=== PATIENT | female | born 1955 | race Caucasian/White ===

== ENCOUNTER → 2016-07-26 | Outpatient (CLI) | payer MEDICARE ==
[~2016-07-26] MED LIST: ACEBUTOLOL HCL200 MG PO; ALLER-FEX180 MG PO; ASPIRIN EC81 MG PO; FLECTOR TOPICAL1 EA TD; FLEXERIL 10 MG10 MG PO; FLONASE 0.05% N16 GM; HYDROXYZINE HCL25 MG PO; LIDOPATCH1 EACH TP; LOPRESSOR 25 MG25 MG PO; SIMVASTATIN40 MG PO
== END ==
LOC: MAMO 07-11 08:40
DX: R92.2 Inconclusive mammogram (principal); Z90.710 Acquired absence of both cervix and uterus
CPT/HCPCS: G0206

== ENCOUNTER 2016-10-30 12:34 | Inpatient (IN) | payer MEDICARE ==
[~2016-10-30] VITALS: Ht 171.4 cm; Wt 66.5 kg
[~2016-10-30 12:34] MED LIST changes: -ACEBUTOLOL HCL200 MG PO; -ASPIRIN EC81 MG PO; -SIMVASTATIN40 MG PO
[2016-10-30 14:42] LABS: HEMOGLOBIN 11.4 gm/dl (12.3-15.3); RED BLOOD COUNT 3.75 M/UL (4.00-5.10); WHITE BLOOD COUNT 5.4 K/UL (4.5-11.0)
[2016-10-30 15:15] LABS: BUN/CREATININE RATIO 18 (0-10)
[2016-10-31 03:05] LABS: HEMOGLOBIN 11.3 gm/dl (12.3-15.3); RED BLOOD COUNT 3.69 M/UL (4.00-5.10); WHITE BLOOD COUNT 4.8 K/UL (4.5-11.0)
[2016-10-31 03:24] LABS: BUN/CREATININE RATIO 17 (0-10)
--- NOTE | 2016-11-01 09:54 | NUR ---
PATIENT BACK ON THE FLOOR FROM TABLE TILT TEST. RESTING AT THIS TIME.
--- NOTE | 2016-11-01 13:34 | NUR ---
PATIENT HAVING HER EEG DONE AT THIS TIME, COMPLAINING OF CHEST PAIN, AND SOB. REPORTED THE ABOVE TO DR. FIELDS AND ACKNOWLEDGED. REPORTED TO C/O DON OBRIEN R/T PATIENT CHEST PAIN AND SOB AND ORDER RECEIVED.
--- NOTE | 2016-11-01 14:14 | NUR ---
PATIENT COMPLAINTS OF INCREASE CHEST PAIN AND INFORMED SHARRON DR. DONNIE OBRIEN AND HE CAME AND SEE PATIENT AND ORDER RECEIVED. INFORMED HIM THAT DURING CONVERSATION PATIENT REPORTS THAT HER DAUGHTER CALLED AND TOLD HER THAT SHE WAS LYING AND FAKING IT. PATIENT APPEARS TO BE ANXIOUS AND WAS UPSET. PROVIDED COMFORT AND ADMINISTERED MEDICATIONS ORDERED. PATIENT RESTING AT THIS TIME. EEG PROCEDURE STOPPED R/T THE ABOVE SITUATION AND WILL NOTIFY DR. PARISH.
--- NOTE | 2016-11-01 14:18 | NUR ---
REPORTED TO SHARRON PATIENT VITAL SIGNS 182/79, 53, O2 SAT 100% . NITRO GIVEN X 1, CHEST PAIN BETTER AND IMPROVING PER PATIENT . INFORMED DR. PARISH OF EEG PROCEDURE STOPPED AND WILL BE CONTINUED TOMORROW R/T THE EPISODE EARLIER C/O LUIZA.
[2016-11-02 04:31] LABS: HEMOGLOBIN 11.8 gm/dl (12.3-15.3); RED BLOOD COUNT 3.83 M/UL (4.00-5.10); WHITE BLOOD COUNT 4.8 K/UL (4.5-11.0)
[2016-11-02 04:56] LABS: BUN/CREATININE RATIO 22 (0-10)
[2016-11-02] MEDS ORDERED: ACEBUTOLOL HCL200 MG PO (16:40)
[2016-11-02] MEDS ORDERED: SIMVASTATIN40 MG PO (16:41)
[2016-11-02] MEDS ORDERED: ASPIRIN EC81 MG PO (16:41)
== END 2016-11-02 18:28 | disposition home or self-care (01) | DRG 312 ==
LOC: ER1 12:34 → ZEROF 17:24 → MED SURG 4 17:24
PROVIDERS: Internal Medicine; Preventive Medicine Occupational Medicine; ADMIT Hospitalist
DX: R55 Syncope and collapse (principal); M54.9 Dorsalgia, unspecified; D64.9 Anemia, unspecified; I65.29 Occlusion and stenosis of unspecified carotid artery; I34.0 Nonrheumatic mitral (valve) insufficiency; I27.2 Other secondary pulmonary hypertension; R00.1 Bradycardia, unspecified; Z79.82 Long term (current) use of aspirin; Z90.710 Acquired absence of both cervix and uterus; Z80.7 Family history of other malignant neoplasms of lymphoid, hematopoietic and related tissues; Z84.89 Family history of other specified conditions; Z88.0 Allergy status to penicillin; Z88.8 Allergy status to other drugs, medicaments and biological substances; Z91.19 Patient's noncompliance with other medical treatment and regimen
CPT/HCPCS: ECHO; 36415; 70450; 71010; 80048; 80053; 80061; 80076; 80307; 81001; 82550; 82553; 83690; 83735; 83874; 83880; 84439; 84443; 84484; 85025; 85027; 85379; 93005; 93270; 93306; 93880; 96360; 96361; 99285; G0378; G0480; J7030; J7050; Q9963

== ENCOUNTER 2020-10-28 16:35 | Emergency (ER) | payer MEDICARE, OTHER ==
[~2020-10-28 16:35] MED LIST changes: +ACEBUTOLOL HCL200 MG PO; +ASPIRIN EC81 MG PO; +SIMVASTATIN40 MG PO
[2020-10-28] MEDS ORDERED: BENADRYL25 MG PO (19:37)
[2020-10-28] MEDS ORDERED: PEPCID40 MG PO (19:38)
== END 2020-10-28 19:45 | disposition home or self-care (01) ==
LOC: ER1 16:35
DX: T78.40XA Allergy, unspecified, initial encounter (principal); Z90.710 Acquired absence of both cervix and uterus; Z90.49 Acquired absence of other specified parts of digestive tract; Z79.899 Other long term (current) drug therapy; Z90.89 Acquired absence of other organs
CPT/HCPCS: 96374; 96375; 99282; J1200

== ENCOUNTER → 2021-06-23 | Outpatient (CLI) | payer MEDICARE, OTHER ==
[~2021-06-23] MED LIST changes: +BENADRYL25 MG PO; +PEPCID40 MG PO
[2021-06-23 11:35] LABS: HEMOGLOBIN 12.5 gm/dl (12.3-15.3); RED BLOOD COUNT 4.06 M/UL (4.00-5.10); WHITE BLOOD COUNT 5.1 K/UL (4.5-11.0)
[2021-06-23 11:54] LABS: BUN/CREATININE RATIO 24 (0-10)
== END ==
LOC: EDSTATUS 10:00 → OPSV2 10:00
PROVIDERS: Orthopaedic Surgery
DX: Z01.818 Encounter for other preprocedural examination (principal); M17.12 Unilateral primary osteoarthritis, left knee
CPT/HCPCS: 71046; 80048; 85027; 93005

== ENCOUNTER → 2021-07-06 | Outpatient (CLI) | payer MEDICARE, OTHER ==
[~2021-07-06] MED LIST changes: +BILBERRY80 MG PO; +MULTIPLE VITAM1 EAC1 PO; +PERCOCET 5-3251 EACH PO; +VITAMIN C500 M4 PO; +VITAMIN D250 MCG PO; +ZINC50 M1 PO
[2021-07-06 11:01] LABS: BUN/CREATININE RATIO 20 (0-10)
== END ==
LOC: LAB 10:12
PROVIDERS: Orthopaedic Surgery
DX: Z01.812 Encounter for preprocedural laboratory examination (principal)
CPT/HCPCS: 36415; 80048; 86850; 86870

== ENCOUNTER 2021-07-07 05:14 | Inpatient (IN) | payer MEDICARE, OTHER ==
[~2021-07-07] VITALS: Ht 170.2 cm; Wt 79.4 kg
[~2021-07-07 05:14] MED LIST changes: -BILBERRY80 MG PO; -MULTIPLE VITAM1 EAC1 PO; -PERCOCET 5-3251 EACH PO; -VITAMIN C500 M4 PO; -VITAMIN D250 MCG PO; -ZINC50 M1 PO
[2021-07-07] MEDS ORDERED: PERCOCET 5-3251 EACH PO (13:41)
[2021-07-08] MEDS ORDERED: ASPIRIN EC81 MG PO (10:19)
[2021-07-08] MEDS ORDERED: MULTIPLE VITAM1 EAC1 PO (11:03)
[2021-07-08] MEDS ORDERED: ZINC50 M1 PO (11:03)
[2021-07-08] MEDS ORDERED: BILBERRY80 MG PO (11:04)
[2021-07-08] MEDS ORDERED: VITAMIN D250 MCG PO (11:04)
[2021-07-08] MEDS ORDERED: VITAMIN C500 M4 PO (11:05)
== END 2021-07-08 12:20 | disposition home or self-care (01) | DRG 470 ==
LOC: OR 05:14 → EDSTATUS 07:30 → OR 07:30 → M/S 18:29 → OR 19:23 → M/S 07-08 12:20
PROVIDERS: ADMIT Orthopaedic Surgery
PROC: 0SRD0J9 Replacement of Left Knee Joint with Synthetic Substitute, Cemented, Open Approach (ICD-10-PCS; principal; 2021-07-07 10:00)
DX: M17.12 Unilateral primary osteoarthritis, left knee (principal); Z20.822 Contact with and (suspected) exposure to COVID-19; I10 Essential (primary) hypertension; E78.5 Hyperlipidemia, unspecified; G89.29 Other chronic pain; K21.9 Gastro-esophageal reflux disease without esophagitis; Z79.82 Long term (current) use of aspirin; Z90.710 Acquired absence of both cervix and uterus; Z90.49 Acquired absence of other specified parts of digestive tract; Z88.5 Allergy status to narcotic agent; Z88.0 Allergy status to penicillin; Z88.8 Allergy status to other drugs, medicaments and biological substances; Z91.040 Latex allergy status; Z82.49 Family history of ischemic heart disease and other diseases of the circulatory system; Z80.9 Family history of malignant neoplasm, unspecified; Z85.028 Personal history of other malignant neoplasm of stomach
CPT/HCPCS: 36415; 73560; 80048; 86850; 86870; 86900; 86901; 97110-GP-CQ; 97116-GP-CQ; 97161; 97166; C1776; J0690; J1100; J1170; J1644; J1885; J2001; J2250; J2270; J2405; J2704; J2710; J2795; J3010; J7120; U0003

== ENCOUNTER 2021-11-01 23:50 | Emergency (ER) | payer MEDICARE, OTHER ==
[~2021-11-01 23:50] MED LIST changes: +BILBERRY80 MG PO; +MULTIPLE VITAM1 EAC1 PO; +PERCOCET 5-3251 EACH PO; +VITAMIN C500 M4 PO; +VITAMIN D250 MCG PO; +ZINC50 M1 PO
== END 2021-11-02 02:52 | disposition home or self-care (01) ==
LOC: ER1 23:50
DX: T16.2XXA Foreign body in left ear, initial encounter (principal); Z88.0 Allergy status to penicillin
CPT/HCPCS: 99282

== ENCOUNTER 2022-01-31 17:07 | Inpatient (IN) | payer MEDICARE, OTHER ==
[~2022-01-31] VITALS: Ht 172.7 cm; Wt 78.9 kg
[2022-01-31 22:00] LABS: HEMOGLOBIN 9.9 gm/dl (12.3-15.3); RED BLOOD COUNT 3.63 M/UL (4.00-5.10); WHITE BLOOD COUNT 9.2 K/UL (4.5-11.0)
[2022-01-31 22:21] LABS: BUN/CREATININE RATIO 19 (0-10)
[2022-02-01 06:26] LABS: HEMOGLOBIN 8.8 gm/dl (12.3-15.3)
[2022-02-01 06:28] LABS: RED BLOOD COUNT 3.16 M/UL (4.00-5.10)
[2022-02-01 06:43] LABS: BUN/CREATININE RATIO 22 (0-10)
[2022-02-01] MEDS ORDERED: ELIQUIS2.5 MG PO (16:43)
[2022-02-01] MEDS ORDERED: ENDOCET 7.5-321 EACH PO (16:43)
[2022-02-01] MEDS ORDERED: ZOFRAN 4 MG TAB4 MG PO (16:43)
[2022-02-01] MEDS ORDERED: CYCLOBENZAPRINE10 MG PO (16:43)
--- NOTE | 2022-02-01 17:13 | NUR ---
notified dr. sheriff of patient u/a results earlier- he acknowledged
--- NOTE | 2022-02-01 17:21 | NUR ---
gave report to rai richmond in [facility].
[2022-02-02 02:03] LABS: WHITE BLOOD COUNT 6.9 K/UL (4.5-11.0)
[2022-02-02 02:08] LABS: HEMOGLOBIN 11.5 gm/dl (12.3-15.3)
[2022-02-02 02:53] LABS: BUN/CREATININE RATIO 14 (0-10)
[2022-02-02 14:28] LABS: HEMOGLOBIN 10.3 gm/dl (12.3-15.3)
--- NOTE | 2022-02-02 22:35 | NUR ---
POLAR ICE APPLIED AT 2050 PER WRITTEN ORDER
[2022-02-03 02:53] LABS: HEMOGLOBIN 10.4 gm/dl (12.3-15.3); RED BLOOD COUNT 3.61 M/UL (4.00-5.10)
[2022-02-03 02:56] LABS: WHITE BLOOD COUNT 10.4 K/UL (4.5-11.0)
[2022-02-03 03:09] LABS: BUN/CREATININE RATIO 14 (0-10)
[2022-02-04 03:12] LABS: HEMOGLOBIN 10.4 gm/dl (12.3-15.3); RED BLOOD COUNT 3.63 M/UL (4.00-5.10); WHITE BLOOD COUNT 8.1 K/UL (4.5-11.0)
[2022-02-04 03:39] LABS: BUN/CREATININE RATIO 16 (0-10)
[2022-02-05 10:46] LABS: HEMOGLOBIN 10.8 gm/dl (12.3-15.3); RED BLOOD COUNT 3.81 M/UL (4.00-5.10); WHITE BLOOD COUNT 7.4 K/UL (4.5-11.0)
[2022-02-06 02:06] LABS: RED BLOOD COUNT 3.45 M/UL (4.00-5.10); WHITE BLOOD COUNT 6.9 K/UL (4.5-11.0)
[2022-02-06 02:16] LABS: BUN/CREATININE RATIO 25 (0-10)
[2022-02-08 03:22] LABS: HEMOGLOBIN 10.2 gm/dl (12.3-15.3); RED BLOOD COUNT 3.57 M/UL (4.00-5.10); WHITE BLOOD COUNT 6.3 K/UL (4.5-11.0)
[2022-02-08 03:47] LABS: BUN/CREATININE RATIO 19 (0-10)
--- NOTE | 2022-02-08 11:51 | NUR ---
CLAMPED SPIVEY CATHETER TO ATTEMPT TO BLADDER TRAIN PATIENT TO REMOVE SPIVEY CATHETER AGAIN. CALL LIGHT WITHIN REACH AND PT MADE AWARE TO CALL OUT WHEN SHE FEELS THE URGE TO URINATE. GINA
[2022-02-08] MEDS ORDERED: FAMOTIDINE20 MG PO (15:10)
--- NOTE | 2022-02-09 09:52 | NUR ---
CALLED FOR EMS AT 0936 CALLED REPORT TO KAILYN AT [facility] AT 0971.
== END 2022-02-09 10:09 | DRG 467 ==
LOC: ER1 17:07 → CDU 22:41 → PROG CARE 22:41 → M/S 22:41 → PROG CARE 02-01 16:50 → M/S 02-06 12:06
PROVIDERS: Family Medicine; Internal Medicine; Internal Medicine Infectious Disease; Nurse Practitioner Family; Orthopaedic Surgery; ADMIT Family Medicine
PROC: 0SRU0J9 Replacement of Left Knee Joint, Femoral Surface with Synthetic Substitute, Cemented, Open Approach (ICD-10-PCS; 2022-02-01)
PROC: 30233N1 Transfusion of Nonautologous Red Blood Cells into Peripheral Vein, Percutaneous Approach (ICD-10-PCS; 2022-02-01)
PROC: 0SPU0JZ Removal of Synthetic Substitute from Left Knee Joint, Femoral Surface, Open Approach (ICD-10-PCS; principal; 2022-02-01 07:30)
DX: M97.8XXA Periprosthetic fracture around other internal prosthetic joint, initial encounter (principal); D62 Acute posthemorrhagic anemia; Z96.652 Presence of left artificial knee joint; M25.462 Effusion, left knee; I95.1 Orthostatic hypotension; E78.5 Hyperlipidemia, unspecified; G43.909 Migraine, unspecified, not intractable, without status migrainosus; W01.0XXA Fall on same level from slipping, tripping and stumbling without subsequent striking against object, initial encounter; Z79.01 Long term (current) use of anticoagulants; Z79.82 Long term (current) use of aspirin; Z90.710 Acquired absence of both cervix and uterus; Z90.49 Acquired absence of other specified parts of digestive tract; Z88.5 Allergy status to narcotic agent; Z88.0 Allergy status to penicillin; Z88.8 Allergy status to other drugs, medicaments and biological substances; Z91.040 Latex allergy status
CPT/HCPCS: 36415; 71045; 72170; 73060; 73080; 73552; 73560; 73562; 73700; 76000; 80048; 80053; 81001; 85014; 85018; 85025; 85027; 85610; 85730; 86850; 86870; 86900; 86901; 86920; 86922; 90471; 90714; 93005; 96374; 96375; 96376; 97110; 97162; 97167; 97530; 97530-GP-CQ; 97535; 99285; C1713; C1776; J0690; J1170; J1644; J2001; J2250; J2270; J2370; J2405; J2704; J3370; J7050; P9016